=== PATIENT | male | born 1990 | race Two or more races ===

== ENCOUNTER 2017-06-01 17:56 | Emergency (ER) | payer MEDICAID ==
[2017-06-01] VITALS (15 sets, daily range): BP systolic 118–175; BP diastolic 84–124
[~2017-06-01] VITALS: Ht 167.6 cm; Wt 63.5 kg
[2017-06-01] MEDS ORDERED: Haloperidol 5mg/ml Inj IM ONE (18:15)
[2017-06-01] MEDS ORDERED: LORazepam Inj 2mg/ml 1ml IM ONE (18:15)
[2017-06-01] MEDS ORDERED: DiphenhydrAMINE 50mg/ml Inj IM ONE (18:15)
--- NOTE | 2017-06-01 18:36 | Emergency Room Report ---
History of Present Illness General Chief Complaint: Overdose Source: Patient Present Illness HPI 27YOM BIBEMS for suspected crystal meth OD Patient allegedly was "acting out" at home, girlfriend called EMS Patient jumped out of ambulance en route and ran into street [employer] called Patient states last used crystal meth was yesterday Denies other drugs, ETOH Patient otherwise remaining silent for other questions I asked for HPI Intermittently yelling, cursing out me, staff, acting aggressively in ER Allergies: Coded Allergies: No Known Allergies (Unverified , 06/01/17) Patient History Past Medical History: unable to obtain Past Surgical History: unable to obtain Pertinent Family History: unable to obtain Social History: Reports: drug use Immunizations: UTD Reviewed Nursing Documentation: PMH: Agreed, PSxH: Agreed Nursing Documentation-PMH Past Medical History: No Stated History Review of Systems All Other Systems: limited - AMS, agrressive Physical Exam Vital Signs Date Time Temp Pulse Resp B/P (MAP) Pulse Ox O2 Delivery O2 Flow Rate FiO2 06/01/17 17:48 148 14 138/86 100 Sp02 EP Interpretation: reviewed, normal General Appearance: normal inspection, well appearing, no apparent distress, alert, GCS 15, non-toxic, other - Aggressive, combative Head: normocephalic, atraumatic Eyes: bilateral eye PERRL, bilateral eye EOMI ENT: normal ENT inspection, hearing grossly normal, normal voice Neck: normal inspection, full range of motion, supple, no bony tend Respiratory: normal inspection, lungs clear, normal breath sounds, no respiratory distress, no retraction, no wheezing Cardiovascular #1: regular rate, rhythm, no edema Gastrointestinal: normal inspection, normal bowel sounds, non tender, soft, no guarding, no hernia Genitourinary: no CVA tenderness Musculoskeletal: normal inspection, back normal, normal range of motion, Vinay' s Sign negative Neurologic: normal inspection, alert, responsive, doctor of pharmacy III-XII nml as tested, motor strength/tone normal, speech normal Psychiatric: normal inspection, no suicidal/homicidal ideation, no delusions Skin: normal inspection, normal color, no rash Medical Decision Making Diagnostic Impression: Primary Impression: Amphetamine abuse Additional Impression: Combative behavior ER Course Likely crystal meth OD Required sedation for combativeness, putting staff at risk ASA/Tylenol/ETOH levels normal No other metabolic abnormalities Signed out to Dr Fernandes at 930pm to reassess when more awake/sober EKG Diagnostic Results Rhythm: NSR ST Segments: no acute changes ASA given to the pt in ED: No Rhythm Strip Diag. Results EP Interpretation: yes Rate: 101 Rhythm: NSR, no PVC's, no ectopy Last Vital Signs Date Time Temp Pulse Resp B/P (MAP) Pulse Ox O2 Delivery O2 Flow Rate FiO2 06/01/17 17:48 148 14 138/86 100 Status: improved Disposition: HOME, SELF-CARE Referrals: NOT CHOSEN IPA/,REFERRING (PCP) MONICO GONZALEZ M.D. Jun 01, 2017 18:36
[2017-06-01 19:44] LABS: BASOPHILS % (AUTO) 1.2 % (0.0-2.0); EOSINOPHILS % (AUTO) 0.4 % (0.0-3.0); LYMPHOCYTES % (AUTO) 11.6 % (20.0-45.0); MEAN CORPUSCULAR HEMOGLOBIN 33.4 PG (27.0-31.0); MEAN CORPUSCULAR HGB CONC 35.3 G/DL (32.0-36.0); MEAN CORPUSCULAR VOLUME 95 FL (80-99); MEAN PLATELET VOLUME 6.5 FL (6.5-10.1); MONOCYTES % (AUTO) 6.8 % (1.0-10.0); PLATELET COUNT 297 K/UL (150-450); RED BLOOD COUNT 4.76 M/UL (4.70-6.10); RED CELL DISTRIBUTION WIDTH 11.2 % (11.6-14.8); WHITE BLOOD COUNT 9.9 K/UL (4.8-10.8)
[2017-06-01 20:02] LABS: ACETAMINOPHEN < 10 ug/mL (10-30); ALANINE AMINOTRANSFERASE 19 U/L (3-41); ALBUMIN/GLOBULIN RATIO 1.5 (1.0-2.7); ALCOHOL < 10 mg/dL; ANION GAP 18 (5-15); ASPARTATE AMINO TRANSFERASE 17 U/L (5-40); CALCIUM 8.7 mg/dL (8.6-10.2); CARBON DIOXIDE 21 mEQ/L (20-30); CHLORIDE 101 mEQ/L (98-107); GLOMERULAR FILTRATION RATE > 60 mL/min (>60); HEMOLYSIS 4; POTASSIUM 3.3 mEQ/L (3.4-4.9); SODIUM 140 mEQ/L (135-145); TOTAL PROTEIN 7.1 g/dL (6.6-8.7)
--- NOTE | 2017-06-08 15:56 | Cardiology Report ---
APPROVED REPORT EKG Measurement Heart [id number] Sinus tachycardia Otherwise normal ECG
== END 2017-06-01 21:35 | disposition home or self-care (01) ==
LOC: EDBD 17:56 → EMR 18:11
DX: F15.10 Other stimulant abuse, uncomplicated (principal); R46.89 Other symptoms and signs involving appearance and behavior; R41.82 Altered mental status, unspecified; F19.90 Other psychoactive substance use, unspecified, uncomplicated
CPT/HCPCS: 36415; 80053; 80329; 85025; 93005; 96361; 96372; 96374; 99284; J1200; J1630